=== PATIENT | male | born 1965 | race Caucasian/White ===

== ENCOUNTER 2020-12-20 06:07 | Inpatient (IN) | payer MEDICARE, BC ==
[2020-12-20] MEDS ORDERED: Zofran 4 MG/2 ML VIAL IV ONE (06:17)
[2020-12-20] MEDS ORDERED: Sodium Chloride 0.9% 1000 ML 1,000 ML IV STA (06:17)
[2020-12-20] MEDS ORDERED: Zofran 4 MG/2 ML VIAL ONE (06:31)
[2020-12-20] MEDS ORDERED: Sodium Chloride 0.9% 1000 ML 1,000 ML ONE (06:31)
[2020-12-20 06:35] LABS: Absolute Neutrophil Ct (ANC) 2.62 (1.4-6.9); BASOPHIL % 0.3 % (0.0-0.4); Basophil (Absolute #) 0.01 (0-0.4); Eosinophil (Absolute #) 0 (0-0.5); Hematocrit 37.2 % (42-50); Lymphocyte (Absolute #) 0.97 (1.0-4.6); Lymphocytes % 24.3 % (24.0-44.0); Mean Cell Volume 87.7 fl (78-100); Mean Corpuscular Hemoglobin 30.7 pg (26-32); Mean Corpuscular Hgb Concent. 34.9 g/dl (32-36); Mean Platelet Volume 10.6 fl (7.5-11.0); Neutrophil % 65.4 % (36.0-66.0); Platelet Count 131 K/mm3 (150-450); Red Blood Count 4.24 M/mm3 (4.1-5.6); Red Cell Distribution Width 12.2 % (11.5-14.0)
--- NOTE | 2020-12-20 06:39 | ERPHSYRPT ---
- History of Present Illness Historian: patient Exam Limitations: no limitations Patient Subjective Stated Complaint: "I just feel terrible and can't take it anymore." Triage Nursing Assessment: Patient reported roughly 1 - 2 week progression of dyspnea, mildly productive cough, sharp abdominal pain, nausea, diarrhea, and cramping. Patient reported a negative covid test 1 week ago. Reported mild anorexia. Pupils - blind non-testable. Oral mucosa pink/dry. Neck supple without lymphadenopathy. Symmetrical chest excursion. heart tones regular rate and rhythm S1/S2 without extra sounds. Lungs vesicular throughout all lung adler. Abdomen soft non-distended with normoactive bowel sounds. no noted hepatosplenomegaly. Mild tenderness/guarding to palpation without rebound tenderness. No noted dependent edema. Timing/Duration: week(s) (2), intermittent Activities at Onset: none Quality: cramping, sharpness Abdominal Pain Onset Location: generalized abdomen Severity of Pain-Max: severe Severity of Pain-Current: moderate Associated Symptoms: diarrhea, loss of appetite, nausea, shortness of breath, vomiting Previous symptoms: no prior history Hx Tetanus, Diphtheria Vaccination/Date Given: Yes Hx Influenza Vaccination/Date Given: No Hx Pneumococcal Vaccination/Date Given: No <JOSE MANUEL MADRIGAL - Last Filed: 12/20/20 06:44> <BANDAR HOLT - Last Filed: 12/20/20 08:39> - History of Present Illness Time Seen by Provider: 12/20/20 06:10 Physician History: Patient is a 55-year-old white male who presents with a 1 to 2-week history of increasing shortness of breath and cough with mild production. He also complains of increasing weakness and some anorexia over the past week he has had sharp crampy abdominal pain generalized in location. He has had diarrhea nausea and vomiting. This morning he has a low-grade fever. He was tested for Covid approximately a week ago and was negative. He has used [id number] Imodium A-D with perhaps some benefit. (JOSE MANUEL MADRIGAL) Allergies/Adverse Reactions: aspirin Allergy (Verified 12/20/20 06:10) Swelling Home Medications: No Reportable Medications [No Reported Medications] 12/20/20 [History] Travel Risk - International Travel Have you traveled outside of the country in past 3 weeks: No - Coronavirus Screening Are you exhibiting any of the following symptoms?: Yes Symptoms: Fever, Cough: New Onset, Shortness of Breath, Vomiting/Diarrhea, H eadaches/Body Aches/Fatigue Close contact with a COVID-19 positive Pt in past 14-21 Days: No <JOSE MANUEL MADRIGAL Last Filed: 12/20/20 06:44> - Review of Systems Constitutional: Fever, Chills, Fatigue, Weakness Eyes: Other (Blindness) Ears, Nose, & Throat: Nose Congestion Respiratory: Cough, Dyspnea, Dyspnea on Exertion (RODGERS) Cardiac: No Symptoms Abdominal/Gastrointestinal: Abdominal Pain, Nausea, Vomiting, Diarrhea Genitourinary Symptoms: No Symptoms Musculoskeletal: Arthralgias, Joint Redness, Joint Pain Neurological: Other (Blindness) Psychological: No Symptoms Hematologic/Lymphatic: No Symptoms Immunological/Allergic: No Symptoms All Other Systems: Reviewed and Negative <JOSE MANUEL MADRIGAL Last Filed: 12/20/20 06:44> - Past Medical History Pertinent Past Medical History: Yes Respiratory History: Bronchitis Other Medical History: BLINDNESS - Past Surgical History Past Surgical History: Yes Musculoskeletal: Orthopedic Surgery - Social History Smoking Status: Never smoker Exposure to second hand smoke: No Drug Use: none Patient Lives Alone: Yes <JOSE MANUEL MADRIGAL Last Filed: 12/20/20 06:44> - Physical Exam General Appearance: mild distress Eye Exam: other (Blindness) Ears, Nose, Throat Exam: normal ENT inspection, pharynx normal, moist mucous membranes Neck Exam: normal inspection, non-tender, supple, full range of motion Respiratory Exam: rhonchi Cardiovascular Exam: regular rate/rhythm, normal heart sounds Gastrointestinal/Abdomen Exam: soft, normal bowel sounds, tenderness Rectal Exam: deferred Back Exam: normal inspection, normal range of motion Extremity Exam: normal inspection, normal range of motion Neurologic Exam: alert, oriented x 3 Skin Exam: normal color, warm, dry Lymphatic Exam: adenopathy SpO2 Interpretation: normal SpO2: 96 O2 Delivery: Room Air <JOSE MANUEL MADRIGAL Last Filed: 12/20/20 06:44> - Nursing Vital Signs Nursing Vital Signs: Initial Vital Signs Temperature 99.7 F 12/20/20 06:07 Pulse Rate 88 12/20/20 06:07 Respiratory Rate 22 12/20/20 06:07 Blood Pressure 115/71 12/20/20 06:07 O2 Sat by Pulse Oximetry 96 12/20/20 06:07 Pain Scale Pain Intensity 0 - Course EKG Interpreted by Me: RATE (79), Sinus Rhythm, NORMAL AXIS, NORMAL INTERVALS, Non-specific ST Changes, Other (Ventricular conduction delay) <JOSE MANUEL MADRIGAL - Last Filed: 12/20/20 06:44> Ordered Tests: Active Orders 24 hr Category Date Time Status EKG-ER Only STAT Care 12/20/20 06:17 Active IV Insertion STAT Care 12/20/20 06:17 Active ABDOMEN AND PELVIS W CONTRAST [CT] Stat Exams 12/20/20 06:18 Taken CHEST 1 VIEW (PORTABLE) Stat Exams 12/20/20 06:17 Taken CHEST WITH CONTRAST [CT] Stat Exams 12/20/20 07:21 Taken AMYLASE Stat Lab 12/20/20 06:30 Completed BLOOD CULTURE Stat Lab 12/20/20 06:45 Received CBC W DIFF Stat Lab 12/20/20 06:30 Completed CMP Stat Lab 12/20/20 06:30 Completed D-DIMER QUANTITATIVE Stat Lab 12/20/20 06:30 Completed INFLUENZA A+B ARELY Stat Lab 12/20/20 06:45 Completed Lactic Acid Stat Lab 12/20/20 06:17 Completed NT PRO BNP Routine Lab 12/20/20 06:30 Completed PROTIME WITH INR Stat Lab 12/20/20 06:30 Completed TROPONIN Q3H Lab 12/20/20 06:30 Completed TROPONIN Q3H Lab 12/20/20 09:30 Ordered TROPONIN Q3H Lab 12/20/20 12:30 Ordered TROPONIN Q3H Lab 12/20/20 15:30 Ordered TROPONIN Q3H Lab 12/20/20 18:30 Ordered UA W/RFX UR CULTURE Stat Lab 12/20/20 08:37 Ordered Transfer Order Routine Transfer 12/20/20 Ordered Medication Summary Discontinued Medications Generic Name Dose Route Start Last Admin Trade Name Freq PRN Reason Stop Dose Admin Sodium Chloride 1,000 mls @ 999 mls/hr 12/20/20 06:17 12/20/20 07:46 Sodium Chloride 0.9% 1000 Ml IV 12/20/20 07:17 Infused .Q1H1M STA Infusion Sodium Chloride Confirm 12/20/20 06:31 Sodium Chloride 0.9% 1000 Ml Administered 12/20/20 06:32 Dose 1,000 mls @ ud .ROUTE .STK-MED ONE Ondansetron HCl 4 mg 12/20/20 06:17 12/20/20 06:32 Zofran 4 Mg/2 Ml Vial IV 12/20/20 06:18 4 mg STAT ONE Administration Ondansetron HCl Confirm 12/20/20 06:31 Zofran 4 Mg/2 Ml Vial Administered 12/20/20 06:32 Dose 4 mg .ROUTE .STK-MED ONE Lab/Rad Data: Laboratory Result Diagrams 12/20/20 06:30 12/20/20 06:30 Laboratory Results 12/20/20 12/20/20 12/20/20 Range/Units 06:45 06:45 06:30 WBC (4.0-10.5) K/mm3 RBC (4.1-5.6) M/mm3 Hgb (12.5-18.0) gm/dl Hct (42-50) % MCV (78-100) fl MCH (26-32) pg MCHC (32-36) g/dl RDW (11.5-14.0) % Plt Count (150-450) K/mm3 MPV (7.5-11.0) fl Gran % (36.0-66.0) % Eos # (Auto) (0-0.5) Absolute Lymphs (auto) (1.0-4.6) Absolute Monos (auto) (0.0-1.3) Lymphocytes % (24.0-44.0) % Monocytes % (0.0-12.0) % Eosinophils % (0.00-5.0) % Basophils % (0.0-0.4) % Absolute Granulocytes (1.4-6.9) Basophils # (0-0.4) PT (8.83-12.87) SECONDS INR (0.8-3.0) D-Dimer (215-500) ng/mL Sodium (137-145) mmol/L Potassium (3.5-5.1) mmol/L Chloride (98-107) mmol/L Carbon Dioxide (22-30) mmol/L Anion Gap (5-15) MEQ/L BUN (9-20) mg/dL Creatinine (0.66-1.25) mg/dL Estimated GFR ML/MIN Glucose (74-106) mg/dL Lactic Acid (0.4-2.0) Calcium (8.4-10.2) mg/dL Total Bilirubin (0.2-1.3) mg/dL AST (17-59) U/L ALT (0-50) U/L Alkaline Phosphatase (38-126) U/L Troponin I < 0.012 (0.000-0.034) ng/mL NT-Pro-B Natriuret Pep 22.8 (0-900) pg/mL Serum Total Protein (6.3-8.2) g/dL Albumin (3.5-5.0) g/dL Amylase (30-110) U/L Influenza Type A Ag NEGATIVE (NEGATIVE) Influenza Type B Ag NEGATIVE (NEGATIVE) SARS-CoV-2 (PCR) POSITIVE A (NEGATIVE) 12/20/20 12/20/20 12/20/20 Range/Units 06:30 06:30 06:30 WBC 4.0 (4.0-10.5) K/mm3 RBC 4.24 (4.1-5.6) M/mm3 Hgb 13.0 (12.5-18.0) gm/dl Hct 37.2 L (42-50) % MCV 87.7 (78-100) fl MCH 30.7 (26-32) pg MCHC 34.9 (32-36) g/dl RDW 12.2 (11.5-14.0) % Plt Count 131 L (150-450) K/mm3 MPV 10.6 (7.5-11.0) fl Gran % 65.4 (36.0-66.0) % Eos # (Auto) 0 (0-0.5) Absolute Lymphs (auto) 0.97 L (1.0-4.6) Absolute Monos (auto) 0.40 (0.0-1.3) Lymphocytes % 24.3 (24.0-44.0) % Monocytes % 10.0 (0.0-12.0) % Eosinophils % 0.0 (0.00-5.0) % Basophils % 0.3 (0.0-0.4) % Absolute Granulocytes 2.62 (1.4-6.9) Basophils # 0.01 (0-0.4) PT 14.9 H (8.83-12.87) SECONDS INR 1.31 (0.8-3.0) D-Dimer 711 H* (215-500) ng/mL Sodium 129 L (137-145) mmol/L Potassium 3.4 L (3.5-5.1) mmol/L Chloride 99 (98-107) mmol/L Carbon Dioxide 21 L (22-30) mmol/L Anion Gap 12.1 (5-15) MEQ/L BUN 14 (9-20) mg/dL Creatinine 0.97 (0.66-1.25) mg/dL Estimated GFR > 60.0 ML/MIN Glucose 107 H (74-106) mg/dL Lactic Acid (0.4-2.0) Calcium 8.5 (8.4-10.2) mg/dL Total Bilirubin 0.50 (0.2-1.3) mg/dL AST 30 (17-59) U/L ALT 19 (0-50) U/L Alkaline Phosphatase 51 (38-126) U/L Troponin I (0.000-0.034) ng/mL NT-Pro-B Natriuret Pep (0-900) pg/mL Serum Total Protein 6.5 (6.3-8.2) g/dL Albumin 3.8 (3.5-5.0) g/dL Amylase 150 H (30-110) U/L Influenza Type A Ag (NEGATIVE) Influenza Type B Ag (NEGATIVE) SARS-CoV-2 (PCR) (NEGATIVE) 12/20/20 Range/Units 06:17 WBC (4.0-10.5) K/mm3 RBC (4.1-5.6) M/mm3 Hgb (12.5-18.0) gm/dl Hct (42-50) % MCV (78-100) fl MCH (26-32) pg MCHC (32-36) g/dl RDW (11.5-14.0) % Plt Count (150-450) K/mm3 MPV (7.5-11.0) fl Gran % (36.0-66.0) % Eos # (Auto) (0-0.5) Absolute Lymphs (auto) (1.0-4.6) Absolute Monos (auto) (0.0-1.3) Lymphocytes % (24.0-44.0) % Monocytes % (0.0-12.0) % Eosinophils % (0.00-5.0) % Basophils % (0.0-0.4) % Absolute Granulocytes (1.4-6.9) Basophils # (0-0.4) PT (8.83-12.87) SECONDS INR (0.8-3.0) D-Dimer (215-500) ng/mL Sodium (137-145) mmol/L Potassium (3.5-5.1) mmol/L Chloride (98-107) mmol/L Carbon Dioxide (22-30) mmol/L Anion Gap (5-15) MEQ/L BUN (9-20) mg/dL Creatinine (0.66-1.25) mg/dL Estimated GFR ML/MIN Glucose (74-106) mg/dL Lactic Acid 0.8 (0.4-2.0) Calcium (8.4-10.2) mg/dL Total Bilirubin (0.2-1.3) mg/dL AST (17-59) U/L ALT (0-50) U/L Alkaline Phosphatase (38-126) U/L Troponin I (0.000-0.034) ng/mL NT-Pro-B Natriuret Pep (0-900) pg/mL Serum Total Protein (6.3-8.2) g/dL Albumin (3.5-5.0) g/dL Amylase (30-110) U/L Influenza Type A Ag (NEGATIVE) Influenza Type B Ag (NEGATIVE) SARS-CoV-2 (PCR) (NEGATIVE) <JOSE MANUEL MADRIGAL - Last Filed: 12/20/20 06:44> - Progress Progress: improved, pain not gone completely, re-examined Counseled pt/family regarding: lab results, diagnosis, rad results <BANDAR HOLT - Last Filed: 12/20/20 08:39> - Progress Progress Note: 12/20/20 06:42 Care was transferred to Dr. Holt at 7 AM. (JOSE MANUEL MADRIGAL) 12/20/20 08:31 Medical decision making: This patient is COVID-19 positive. Patient would benefit from admission into the hospital. I spoke with Dr. Goodwin, our COVID-19 hospitalist. He agrees the patient requires admission. We will admit him into the hospital and provide antiemetics, pain medication, low rate IV fluids, steroids remdesivir and monitoring. (BANDAR HOLT) <JOSE MANUEL MADRIGAL - Last Filed: 12/20/20 06:44> - Departure Departure Disposition: In-patient Admission Critical Care Time: No <BANDAR HOLT - Last Filed: 12/20/20 08:39> - Departure Clinical Impression: COVID-19 virus infection, Vomiting and diarrhea Condition: Stable Referrals: NOELLE BORJA MD [Primary Care Provider] -
[2020-12-20 06:42] LABS: INR 1.31 (0.8-3.0); PROTIME 14.9 SECONDS (8.83-12.87)
[2020-12-20 06:53] LABS: ALBUMIN 3.8 g/dL (3.5-5.0); ALKALINE PHOSPHATASE 51 U/L (38-126); AMYLASE 150 U/L (30-110); ANION GAP 12.1 MEQ/L (5-15); BLOOD UREA NITROGEN 14 mg/dL (9-20); CHLORIDE 99 mmol/L (98-107); Calcium 8.5 mg/dL (8.4-10.2); Carbon Dioxide 21 mmol/L (22-30); Creatinine 1 0.97 mg/dL (0.66-1.25); EST GLOMERULAR FILTRATION RATE > 60.0 ML/MIN; Glucose 107 mg/dL (74-106); Potassium 3.4 mmol/L (3.5-5.1); SGOT/AST 30 U/L (17-59); SGPT/ALT 19 U/L (0-50); SODIUM 129 mmol/L (137-145); Total Protein 6.5 g/dL (6.3-8.2)
[2020-12-20 07:02] LABS: NT PRO BNP 22.8 pg/mL (0-900)
[2020-12-20 07:05] LABS: TROPONIN < 0.012 ng/mL (0.000-0.034)
[2020-12-20 07:26] LABS: INFLUENZA A NEGATIVE (NEGATIVE); INFLUENZA B NEGATIVE (NEGATIVE)
[2020-12-20 08:52] LABS: Appearance CLEAR (CLEAR); Bilirubin NEGATIVE (NEGATIVE); Blood NEGATIVE Ery/ul (0-5); Glucose NEGATIVE (NEGATIVE); Ketones TRACE (NEGATIVE); Leukocyte Esterase NEGATIVE (NEGATIVE); Mucus SLIGHT /HPF (NEGATIVE); Nitrite NEGATIVE (NEGATIVE); Protein,Urine Dip NEGATIVE (Negative); Specific Gravity 1.044 (1.005-1.025); Urobilinogen 2 mg/dL (0-1); WBC 0-2 /HPF (0-5)
[2020-12-20] MEDS ORDERED: Zofran 4 MG/2 ML VIAL IV PRN (09:09)
[2020-12-20] MEDS ORDERED: Sodium Chloride 0.9% 1000 ML 1,000 ML IV SCH (09:09)
[2020-12-20] MEDS ORDERED: TYLENOL 325 MG ONE (09:13)
[2020-12-20] MEDS: TYLENOL 325 MG PO PRN ×2 (09:30→22:53)
--- NOTE | 2020-12-20 09:37 | XRAY ---
Indication: Cough and vomiting 1 week. Positive COVID 19. Comparison: None Portable chest demonstrates right perihilar and lesser degree left base airspace disease without consolidation/large effusion. Remaining heart and bony thorax unremarkable.
--- NOTE | 2020-12-20 09:39 | XRAY ---
Indication: Cough and vomiting. Positive COVID 19. Multiple contiguous axial images obtained through the abdomen and pelvis using 80 cc Isovue 370 contrast only. Comparison: None CT chest reported separately. Noncontrasted stomach and bowel loops appear nonobstructed. No free fluid/air. Bilateral renal cysts, largest left lower pole measuring 6.6 x 8.8 x 6.5 cm. Remaining liver, gallbladder, pancreas, spleen, adrenal glands, kidneys, ureters, bladder, and aorta appear unremarkable. No pathologic retroperitoneal lymphadenopathy. Osseous structures intact. Impression: 1. Bilateral renal cysts. 2. Remaining CT abdomen/pelvis with contrast exam is negative. Comment: Preliminary interpretation was made by [facility]. No critical discrepancy.
--- NOTE | 2020-12-20 09:42 | XRAY ---
Indication: Cough and vomiting. Positive COVID 19. Multiple contiguous axial images obtained through the chest using 80 cc Isovue 370 contrast and PE protocol. Comparison: None There is good opacification of the pulmonary arteries to include the lobar and segmental branches. No pulmonary embolus. Heart is not enlarged. Aorta is normal in course and caliber. Tiny left hilar calcified nodes. No pathologic mediastinal/hilar lymphadenopathy. Lungs demonstrates right lower lobe airspace disease with lesser minimal patchy airspace disease bilaterally. Incidental mild bilateral dependent atelectasis and tiny left lower lobe calcified granuloma. Bony thorax intact with incidental old right 5/[address] abdomen/pelvis reported separately. Impression: 1. Negative pulmonary embolus. 2. Scattered bilateral airspace disease, greatest right lower lobe. 3. Incidental old granulomatous disease. Comment: Preliminary interpretation was made by [facility]. No critical discrepancy.
[2020-12-20] MEDS ORDERED: REMDESIVIR 200 MG in Sodium Chloride 0.9% 250 ML 250 ML IV ONE (10:00)
[2020-12-20] MEDS: Decadron 4 MG INJ IV SCH ×2 (10:12→21:14)
[2020-12-20] MEDS: ENOXAPARIN SODIUM SQ SCH (11:15)
[2020-12-20] MEDS: SODIUM CHLORIDE 0.9% W/ 40 mEq KCL 1000ML 1,000 ML IV SCH (11:15)
[2020-12-20] MEDS: Ativan 2 MG/1 ML VIAL IV PRN ×2 (21:15→22:43)
[2020-12-21 07:19] LABS: Absolute Neutrophil Ct (ANC) 2.51 (1.4-6.9); Basophil (Absolute #) 0 (0-0.4); Eosinophil (Absolute #) 0 (0-0.5); Hematocrit 36.4 % (42-50); Hemoglobin 12.4 gm/dl (12.5-18.0); Lymphocyte (Absolute #) 0.51 (1.0-4.6); Lymphocytes % 15.6 % (24.0-44.0); Mean Cell Volume 89.2 fl (78-100); Mean Corpuscular Hemoglobin 30.4 pg (26-32); Mean Corpuscular Hgb Concent. 34.1 g/dl (32-36); Mean Platelet Volume 11.3 fl (7.5-11.0); Monocyte (Absolute #) 0.25 (0.0-1.3); Monocytes % 7.6 % (0.0-12.0); Neutrophil % 76.8 % (36.0-66.0); Platelet Count 132 K/mm3 (150-450); Red Blood Count 4.08 M/mm3 (4.1-5.6); Red Cell Distribution Width 12.4 % (11.5-14.0); White Blood Count 3.3 K/mm3 (4.0-10.5)
[2020-12-21 07:25] LABS: ALBUMIN 3.2 g/dL (3.5-5.0); ALKALINE PHOSPHATASE 43 U/L (38-126); ANION GAP 9.9 MEQ/L (5-15); BLOOD UREA NITROGEN 13 mg/dL (9-20); CHLORIDE 107 mmol/L (98-107); Calcium 8.4 mg/dL (8.4-10.2); Carbon Dioxide 21 mmol/L (22-30); EST GLOMERULAR FILTRATION RATE > 60.0 ML/MIN; Glucose 140 mg/dL (74-106); Potassium 4.1 mmol/L (3.5-5.1); SGOT/AST 28 U/L (17-59); SGPT/ALT 19 U/L (0-50); SODIUM 134 mmol/L (137-145); Total Protein 5.9 g/dL (6.3-8.2)
[2020-12-21] MEDS: SODIUM CHLORIDE 0.9% W/ 40 mEq KCL 1000ML 1,000 ML IV SCH (07:51)
[2020-12-21 08:16] LABS: Slide Review 1 YES
[2020-12-21] MEDS: Decadron 4 MG INJ IV SCH ×2 (09:30→21:54)
[2020-12-21] MEDS: ENOXAPARIN SODIUM SQ SCH (09:30)
[2020-12-21] MEDS: REMDESIVIR 100 MG in Sodium Chloride 0.9% 100 ML IVPB 100 ML IV SCH (09:46)
[2020-12-21] MEDS ORDERED: Tussionex Pennkinetic Susp PO PRN (10:51)
[2020-12-21] MEDS: Tussionex Pennkinetic Susp PO PRN ×2 (11:52→23:59)
[2020-12-21] MEDS ORDERED: Tums EX 750 MG PO PRN (17:18)
[2020-12-21] MEDS: Pepcid 20 MG PO SCH (21:54)
[2020-12-21] MEDS: Ativan 2 MG/1 ML VIAL IV PRN (23:58)
[2020-12-22 05:15] LABS: Hematocrit 37.6 % (42-50); Hemoglobin 12.8 gm/dl (12.5-18.0); Mean Cell Volume 89.7 fl (78-100); Mean Corpuscular Hemoglobin 30.5 pg (26-32); Mean Platelet Volume 10.8 fl (7.5-11.0); Platelet Count 163 K/mm3 (150-450); Red Blood Count 4.19 M/mm3 (4.1-5.6); Red Cell Distribution Width 12.6 % (11.5-14.0); White Blood Count 8.2 K/mm3 (4.0-10.5)
--- NOTE | 2020-12-22 09:01 | PCM.NOTE ---
Date and Time: 12/22/20857 Subjective Assessment: patient is tolerating po intake, has a significant cough but not requiring oxygen currently. he has not had diarrhea since admission he states. Objective Exam General Appearance: no apparent distress, alert Respiratory Exam: rhonchi Cardiovascular Exam: regular rate/rhythm, normal heart sounds Gastrointestinal/Abdomen Exam: soft, No tenderness, No mass Extremity Exam: normal inspection, normal range of motion OBJECTIVE DATA Vital Signs: Vital Signs - 24 hr Temp Pulse Resp BP Pulse Ox 12/22/20 08:00 97.8 F 53 L 18 119/82 94 L 12/22/20 07:23 95 12/22/20 06:00 17 12/22/20 05:38 47 L 16 94 L 12/22/20 04:00 97.6 F 60 18 127/76 94 L 12/22/20 02:00 19 12/22/20 01:46 59 L 19 93 L 12/22/20 00:00 18 12/21/20 23:38 98.6 F 57 L 18 119/59 95 12/21/20 22:00 16 12/21/20 21:54 58 L 18 91 L 12/21/20 20:26 91 L 12/21/20 20:00 23 12/21/20 19:39 98.1 F 73 23 119/76 91 L 12/21/20 17:44 79 18 93 L 12/21/20 16:00 97.3 F 67 16 124/79 93 L 12/21/20 14:00 68 20 91 L 12/21/20 12:00 66 19 126/53 93 L 12/21/20 11:49 18 12/21/20 09:51 73 21 93 L Oxygen-Last 24 hours Oxygen Flowrate (L/min)-RT 1 Oxygen Flowrate (L/min)-RT 1 Pain Assessment - Last Documented Pain Intensity 0 Pain Scale Used FLACC Intake and Output: Intake & Output 12/19/20 12/20/20 12/21/20 12/22/20 11:59 11:59 11:59 11:59 Intake Total 2284 780 Output Total 2000 750 Balance 284 30 Weight 78.4 kg Lab Results: Lab Results-Last 24 Hours 12/22/20 12/22/20 Range/Units 05:00 05:00 WBC 8.2 (4.0-10.5) K/mm3 RBC 4.19 (4.1-5.6) M/mm3 Hgb 12.8 (12.5-18.0) gm/dl Hct 37.6 L (42-50) % MCV 89.7 (78-100) fl MCH 30.5 (26-32) pg MCHC 34.0 (32-36) g/dl RDW 12.6 (11.5-14.0) % Plt Count 163 (150-450) K/mm3 MPV 10.8 (7.5-11.0) fl D-Dimer 324 (215-500) ng/mL Assessment/Plan (1) COVID-19 virus infection Current Visit: Yes Status: Acute Assessment & Plan: continue remdisivir and dexamethasone. patient is stable Code(s): U07.1 - COVID-19 (2) Vomiting and diarrhea Current Visit: Yes Status: Acute Assessment & Plan: resolved at this time, continue regular diet Code(s): R11.10 - VOMITING, UNSPECIFIED; R19.7 - DIARRHEA, UNSPECIFIED
[2020-12-22] MEDS: REMDESIVIR 100 MG in Sodium Chloride 0.9% 100 ML IVPB 100 ML IV SCH (09:37)
[2020-12-22] MEDS: Decadron 4 MG INJ IV SCH (09:37)
[2020-12-22] MEDS: Pepcid 20 MG PO SCH ×2 (09:38→21:07)
[2020-12-22] MEDS: ENOXAPARIN SODIUM SQ SCH (09:38)
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
[2020-12-22] MEDS: DECADRON 10MG INJ. IV SCH (21:07)
[2020-12-22] MEDS: Ativan 2 MG/1 ML VIAL IV PRN (22:08)
[2020-12-23 05:10] LABS: Hematocrit 35.1 % (42-50); Hemoglobin 11.8 gm/dl (12.5-18.0); Mean Cell Volume 89.1 fl (78-100); Mean Corpuscular Hemoglobin 29.9 pg (26-32); Mean Corpuscular Hgb Concent. 33.6 g/dl (32-36); Mean Platelet Volume 10.7 fl (7.5-11.0); Platelet Count 192 K/mm3 (150-450); Red Blood Count 3.94 M/mm3 (4.1-5.6); Red Cell Distribution Width 12.7 % (11.5-14.0); White Blood Count 9.3 K/mm3 (4.0-10.5)
[2020-12-23 05:29] LABS: ANION GAP 9.8 MEQ/L (5-15); BLOOD UREA NITROGEN 17 mg/dL (9-20); CHLORIDE 105 mmol/L (98-107); Calcium 8.3 mg/dL (8.4-10.2); Carbon Dioxide 23 mmol/L (22-30); Creatinine 1 0.77 mg/dL (0.66-1.25); EST GLOMERULAR FILTRATION RATE > 60.0 ML/MIN; Glucose 131 mg/dL (74-106); Potassium 4.3 mmol/L (3.5-5.1); SODIUM 134 mmol/L (137-145)
[2020-12-23 07:18] LABS: Lymphocytes 7 % (24-44); Monocyte 1 % (0.0-12.0); Neutrophils 92 % (36.-66.); Platelet Estimate NORMAL (NORMAL); Total Cells Counted 100
[2020-12-23] MEDS: Pepcid 20 MG PO SCH ×2 (09:36→21:00)
[2020-12-23] MEDS: ENOXAPARIN SODIUM SQ SCH (09:36)
[2020-12-23] MEDS: DECADRON 10MG INJ. IV SCH ×2 (09:36→21:00)
[2020-12-23] MEDS: REMDESIVIR 100 MG in Sodium Chloride 0.9% 100 ML IVPB 100 ML IV SCH (09:52)
[2020-12-23] MEDS: Tussionex Pennkinetic Susp PO PRN ×2 (11:06→23:07)
--- NOTE | 2020-12-23 11:54 | PCM.NOTE ---
Date and Time: 12/23/20 1151 Subjective Assessment: patient is still on room air, has significant cough still present but is tolerating po intake, has no diarrhea and he is tolerating activity in the room. he has no new complaints or concerns today Objective Exam General Appearance: no apparent distress, other (acutely ill appearing, coughing during exam) Neurologic Exam: alert, oriented x 3 Skin Exam: normal color, warm, dry Respiratory Exam: normal breath sounds, lungs clear, No respiratory distress Cardiovascular Exam: regular rate/rhythm, normal heart sounds Gastrointestinal/Abdomen Exam: soft, No tenderness, No mass Extremity Exam: normal inspection, normal range of motion OBJECTIVE DATA Vital Signs: Vital Signs - 24 hr Temp Pulse Resp BP Pulse Ox 12/23/20 10:00 97.7 F 54 L 19 96 12/23/20 08:00 97.7 F 63 16 118/56 92 L 12/23/20 07:39 92 L 12/23/20 06:00 97.5 F 46 L 12 122/67 94 L 12/23/20 04:00 98.0 F 44 L 21 106/63 92 L 12/23/20 02:00 96.7 F 77 21 101/64 92 L 12/23/20 00:08 58 L 92 L 12/22/20 23:15 21 12/22/20 23:00 97.8 F 48 L 21 105/61 93 L 12/22/20 22:00 10 L 12/22/20 21:00 51 L 19 93 L 12/22/20 19:57 97.7 F 57 L 22 114/73 94 L 12/22/20 19:49 22 12/22/20 18:31 68 24 92 L 12/22/20 18:00 20 12/22/20 17:41 92 L 12/22/20 17:12 95 12/22/20 16:00 97.3 F 64 18 105/68 12/22/20 14:00 21 12/22/20 13:49 89 21 91 L 12/22/20 12:00 97.8 F 57 L 16 99/58 92 L Pain Assessment - Last Documented Pain Intensity 0 Pain Scale Used FLACC Intake and Output: Intake & Output 12/20/20 12/21/20 12/22/20 12/23/20 11:59 11:59 11:59 11:59 Intake Total 2284 1020 1200 Output Total 2000 750 2100 Balance 284 270 -900 Weight 78.4 kg 78.5 kg 78.7 kg Lab Results: Lab Results-Last 24 Hours 12/23/20 12/23/20 Range/Units 04:51 04:51 WBC 9.3 (4.0-10.5) K/mm3 RBC 3.94 L (4.1-5.6) M/mm3 Hgb 11.8 L (12.5-18.0) gm/dl Hct 35.1 L (42-50) % MCV 89.1 (78-100) fl MCH 29.9 (26-32) pg MCHC 33.6 (32-36) g/dl RDW 12.7 (11.5-14.0) % Plt Count 192 (150-450) K/mm3 MPV 10.7 (7.5-11.0) fl Segmented Neutrophils 92 H (36.-66.) % Lymphocytes (Manual) 7 L (24-44) % Monocytes (Manual) 1 (0.0-12.0) % Platelet Estimate NORMAL (NORMAL) RBC Morphology NORMAL Sodium 134 L (137-145) mmol/L Potassium 4.3 (3.5-5.1) mmol/L Chloride 105 (98-107) mmol/L Carbon Dioxide 23 (22-30) mmol/L Anion Gap 9.8 (5-15) MEQ/L BUN 17 (9-20) mg/dL Creatinine 0.77 (0.66-1.25) mg/dL Estimated GFR > 60.0 ML/MIN Glucose 131 H (74-106) mg/dL Calcium 8.3 L (8.4-10.2) mg/dL Multi-Disciplinary Progress Notes: Multi-Disciplinary Progress Notes 12/23/20 09:45 Case Management Note by Isabelle Blanc PATIENT CONTINUES TO DENY ANY NEEDS REGARDING DC AT THIS TIME- HE PLANS TO RETURN HOME TO HIS PRIOR LEVEL OF FUNCTIONING. PRIMARY RN HAS OXIMETER TO GIVE TO PATIENT AT DC. SHE WILL TEACH PATIENT'S SIG OTHER HOW TO USE IT Initialized on 12/23/20 09:45 - END OF NOTE Assessment/Plan (1) COVID-19 virus infection Current Visit: Yes Status: Acute Assessment & Plan: dose 3 or 4 of remdisivir today, if remains without oxygen requirement and tolerating po will consider discharge after completion of remdisivir course. continue dexamethasone and prophylactic lovenox Code(s): U07.1 - COVID-19 (2) Vomiting and diarrhea Current Visit: Yes Status: Acute Code(s): R11.10 - VOMITING, UNSPECIFIED; R19.7 - DIARRHEA, UNSPECIFIED
[2020-12-23] MEDS: Ativan 2 MG/1 ML VIAL IV PRN (23:07)
[2020-12-24 05:18] LABS: Absolute Neutrophil Ct (ANC) 6.62 (1.4-6.9); Basophil (Absolute #) 0 (0-0.4); Eosinophil (Absolute #) 0 (0-0.5); Hematocrit 35.3 % (42-50); Lymphocyte (Absolute #) 0.62 (1.0-4.6); Lymphocytes % 8.1 % (24.0-44.0); Mean Cell Volume 90.1 fl (78-100); Mean Corpuscular Hemoglobin 30.6 pg (26-32); Mean Platelet Volume 10.6 fl (7.5-11.0); Monocyte (Absolute #) 0.41 (0.0-1.3); Monocytes % 5.4 % (0.0-12.0); Neutrophil % 86.5 % (36.0-66.0); Platelet Count 195 K/mm3 (150-450); Red Blood Count 3.92 M/mm3 (4.1-5.6); Red Cell Distribution Width 12.9 % (11.5-14.0); White Blood Count 7.7 K/mm3 (4.0-10.5)
[2020-12-24 05:20] LABS: ANION GAP 9.4 MEQ/L (5-15); BLOOD UREA NITROGEN 18 mg/dL (9-20); CHLORIDE 105 mmol/L (98-107); Calcium 8.2 mg/dL (8.4-10.2); Carbon Dioxide 24 mmol/L (22-30); Creatinine 1 0.67 mg/dL (0.66-1.25); EST GLOMERULAR FILTRATION RATE > 60.0 ML/MIN; Glucose 135 mg/dL (74-106); Potassium 4.1 mmol/L (3.5-5.1); SODIUM 134 mmol/L (137-145)
[2020-12-24] MEDS: ENOXAPARIN SODIUM SQ SCH (09:03)
[2020-12-24] MEDS: Pepcid 20 MG PO SCH (09:03)
[2020-12-24] MEDS: DECADRON 10MG INJ. IV SCH (09:03)
[2020-12-24] MEDS: REMDESIVIR 100 MG in Sodium Chloride 0.9% 100 ML IVPB 100 ML IV SCH (09:30)
--- NOTE | 2020-12-24 11:01 | PCM.DS ---
Discharge Summary Date of Admission: 12/20/20 08:55 Admitting Physician: MATEO GOYAL Primary Care Provider: HUONG,NOELLE Allergies Allergies aspirin Allergy (Verified 12/20/20 06:10) Swelling codeine Adverse Reaction (Verified 12/20/20 08:46) Vomiting morphine Adverse Reaction (Verified 12/20/20 09:39) Vomiting Hospital Summary - Hospital Course Hospital Course: patient was admitted to the hospital with diarrhea, weakness and cough. was tested positive for sars-cov 2. continues to have some cough, no oxygen requirement and no increase work of breathing. he completed 5 doses of remdisivir and will be discharged today. - Vitals & Intake/Output Vital Signs: Vital Signs Temperature 97.6 F 12/24/20 08:00 Pulse Rate 61 12/24/20 09:46 Respiratory Rate 22 12/24/20 09:46 Blood Pressure 112/69 12/24/20 08:00 O2 Sat by Pulse Oximetry 93 L 12/24/20 09:46 Intake & Output: Intake & Output 12/21/20 12/22/20 12/23/20 12/24/20 11:59 11:59 11:59 11:59 Intake Total 2284 1020 1200 1110 Output Total 2000 750 2100 1600 Balance 284 541 -900 -176 Weight 78.5 kg 78.7 kg 79.2 kg - Lab Result Diagrams: 12/24/20 04:45 12/24/20 04:45 Lab Results-Last 24 Hrs: Lab Results-Last 24 Hours 12/24/20 12/24/20 12/24/20 Range/Units 04:45 04:45 04:45 WBC 7.7 (4.0-10.5) K/mm3 RBC 3.92 L (4.1-5.6) M/mm3 Hgb 12.0 L (12.5-18.0) gm/dl Hct 35.3 L (42-50) % MCV 90.1 (78-100) fl MCH 30.6 (26-32) pg MCHC 34.0 (32-36) g/dl RDW 12.9 (11.5-14.0) % Plt Count 195 (150-450) K/mm3 MPV 10.6 (7.5-11.0) fl Gran % 86.5 H (36.0-66.0) % Eos # (Auto) 0 (0-0.5) Absolute Lymphs (auto) 0.62 L (1.0-4.6) Absolute Monos (auto) 0.41 (0.0-1.3) Lymphocytes % 8.1 L (24.0-44.0) % Monocytes % 5.4 (0.0-12.0) % Eosinophils % 0.0 (0.00-5.0) % Basophils % 0.0 (0.0-0.4) % Absolute Granulocytes 6.62 (1.4-6.9) Basophils # 0 (0-0.4) D-Dimer 351 (215-500) ng/mL Sodium 134 L (137-145) mmol/L Potassium 4.1 (3.5-5.1) mmol/L Chloride 105 (98-107) mmol/L Carbon Dioxide 24 (22-30) mmol/L Anion Gap 9.4 (5-15) MEQ/L BUN 18 (9-20) mg/dL Creatinine 0.67 (0.66-1.25) mg/dL Estimated GFR > 60.0 ML/MIN Glucose 135 H (74-106) mg/dL Calcium 8.2 L (8.4-10.2) mg/dL Micro Results-Entire Visit: Microbiology 12/20/20 06:45 Blood Culture Gram Stain - Final Blood Not Reportable Blood Culture - Final NO GROWTH 12/20/20 06:40 Blood Culture Gram Stain - Final Blood Not Reportable Blood Culture - Final NO GROWTH - Procedures and Test Procedures and Tests throughout Hospitalization: Therapy Orders & Screens 12/20/20 09:09 Respiratory Therapy Consult ROUTINE Comment: Reason For Exam: 12/20/20 11:42 Oxygen Nasal Cannula 2 lpm Comment: Diagnosis: covid 19 Discharge Exam General Appearance: no apparent distress, alert Respiratory Exam: normal breath sounds, lungs clear, No respiratory distress Cardiovascular Exam: regular rate/rhythm, normal heart sounds Gastrointestinal/Abdomen Exam: soft, No tenderness, No mass Extremity Exam: normal inspection, normal range of motion Skin Exam: normal color, warm, dry Final Diagnosis/Problem List - Final Discharge Diagnosis/Problem (1) COVID-19 virus infection Current Visit: Yes Status: Acute Code(s): U07.1 - COVID-19 (2) Vomiting and diarrhea Current Visit: Yes Status: Acute Code(s): R11.10 - VOMITING, UNSPECIFIED; R19.7 - DIARRHEA, UNSPECIFIED - Discharge Disposition: Home, Self-Care Condition: Stable Prescriptions: New Hydrocod Psx/Chlor-[place] [Tussionex Pennkinetic Susp] 5 ml PO Q12H PRN PRN #120 ml MDD 10mL PRN Reason: Cough Dexamethasone 4 mg PO BID #10 tablet Instructions: Coronavirus Disease 2019 (COVID-19) (DC) Follow up with: NOELLE BORJA MD [Primary Care Provider] - Forms: Discharge Instructions
[2020-12-24 11:51] VITALS: BP 110/70; PULSE 58; O2SAT 94
== END 2020-12-24 11:59 | disposition home or self-care (01) | DRG 178 ==
LOC: ED 06:07 → MED SURG 08:55
PROVIDERS: ADMIT Family Medicine; ATTEND Family Medicine
DX: U07.1 COVID-19 (principal); A08.39 Other viral enteritis; E87.1 Hypo-osmolality and hyponatremia; E86.0 Dehydration; E87.6 Hypokalemia; R11.2 Nausea with vomiting, unspecified; R53.1 Weakness; R10.84 Generalized abdominal pain; H54.8 Legal blindness, as defined in USA
CPT/HCPCS: 36000; 36415; 71045; 71260; 74177; 80048; 80053; 81001; 82150; 83605; 83880; 84484; 85025; 85027; 85379; 85610; 87040; 87400; 93005; 94762; 96360; 96374; 99285; U0003; J1100; J1650; J2060; J2405; A9270-GY